=== PATIENT | male | born 1990 | race Caucasian/White ===

== ENCOUNTER → 2017-06-28 16:16 | Outpatient (CLI) | payer OTHER | END | disposition home or self-care (01) | LOC: LAB 16:16 | DX: Z00.00 Encounter for general adult medical examination without abnormal findings (principal) ==

== ENCOUNTER → 2017-06-28 | Outpatient (CLI) | payer OTHER ==
[~2017-06-28] VITALS: Ht 152.4 cm; Wt 66.7 kg
[~2017-06-28] MED LIST: AMOX1TAB12 PO
== END | disposition home or self-care (01) ==
LOC: PPHC 15:17
DX: Z00.00 Encounter for general adult medical examination without abnormal findings (principal)

== ENCOUNTER 2018-05-07 07:55 | Outpatient (CLI) | payer OTHER | END 2018-05-07 08:00 | disposition home or self-care (01) | LOC: LAB 07:55 | DX: Z00.00 Encounter for general adult medical examination without abnormal findings (principal); Z11.3 Encounter for screening for infections with a predominantly sexual mode of transmission ==

== ENCOUNTER 2020-02-16 08:00 | Outpatient (CLI) | payer OTHER | END 2020-02-16 15:00 | disposition home or self-care (01) | LOC: PPH VACUNA 08:00 | DX: Z23 Encounter for immunization (principal) ==

== ENCOUNTER → 2020-06-02 | Outpatient (CLI) | payer OTHER | END | disposition home or self-care (01) | LOC: LAB 06:34 | PROVIDERS: ATTEND Internal Medicine | DX: E03.8 Other specified hypothyroidism (principal); Z12.11 Encounter for screening for malignant neoplasm of colon; I10 Essential (primary) hypertension; E78.2 Mixed hyperlipidemia ==

== ENCOUNTER 2021-02-21 10:50 | Outpatient (CLI) | payer OTHER | END 2021-02-21 11:50 | disposition home or self-care (01) | LOC: PPH VACUNA 10:50 | PROVIDERS: ATTEND Emergency Medicine Pediatric Emergency Medicine | DX: Z23 Encounter for immunization (principal) ==

== ENCOUNTER 2021-10-17 07:40 | Outpatient (CLI) | payer OTHER | END 2021-10-17 07:45 | disposition home or self-care (01) | LOC: LAB 07:40 | PROVIDERS: ATTEND Internal Medicine | DX: E78.2 Mixed hyperlipidemia (principal); I10 Essential (primary) hypertension; Z20.2 Contact with and (suspected) exposure to infections with a predominantly sexual mode of transmission; Z00.00 Encounter for general adult medical examination without abnormal findings; Z16.11 Resistance to penicillins ==